=== PATIENT | male | born 1965 ===

== ENCOUNTER 2016-08-16 09:41 | Emergency (ER) | payer BC ==
[2016-08-16 10:01] VITALS: BP 115/69
--- NOTE | 2016-08-16 14:41 | UC ---
Citlaly Ewing [place], scribed for Brian Dougherty MD on 08/16/16 at 1035 . Dizzy HPI HPI Summary: Patient is a 51 y/o male who presents to the with constant dizziness since yesterday. He states he has been feeling exhaustion and grief, like when his mother since 7 days. He denies nausea, but describes the dizziness as one you experience before vomiting, He denies numbness, blurry vision, tinnitus, or tingling. Pt reports he had a cold 4-5 days ago. He reports no SI, but reports recent stress. - History Of Current Complaint Chief Complaint: UCGeneralIllness Stated Complaint: DIZZY Time Seen by Provider: 08/16/16 10:20 Hx Obtained From: Patient Onset/Duration: Gradual Onset, Lasting Days Timing: Constant Severity Initially: Moderate Severity Currently: Moderate Character: Weak - 1 week., Dizzy Aggravating Factor(s): Nothing Alleviating Factor(s): Nothing Associated Signs And Symptoms: Negative: Nausea, Tinnitus, Visual Changes - Allergies/Home Medications Allergies/Adverse Reactions: Allergies Allergy/AdvReac Type Severity Reaction Status Date / Time No Known Allergies Allergy Verified 08/16/16 10:01 Home Medications: Home Medications Omeprazole CAP* [Prilosec CAP* 20 MG] 20 mg PO DAILY 08/16/16 [History Confirmed 08/16/16] PMH/Surg Hx/FS Hx/Imm Hx Endocrine History Of: Denies: Diabetes, Thyroid Disease Cardiovascular History Of: Denies: Cardiac Disorders, Hypertension Respiratory History Of: Denies: COPD, Asthma GI/ History Of: Denies: Ulcer - Surgical History Surgical History: None - Family History Known Family History: Positive: Other - CVA. Negative: Cardiac Disease, Diabetes - Social History Alcohol Use: None Substance Use Type: None Smoking Status (MU): Never Smoked Tobacco Review of Systems Constitutional: Negative Gastrointestinal: Negative - No nausea. Neurological: Negative - No numbness, blurry vision, tinnitus, or tingling. All Other Systems Reviewed And Are Negative: Yes Physical Exam Triage Information Reviewed: Yes Appearance: Well-Appearing, No Pain Distress Vital Signs: Initial Vital Signs Temp 97.7 F 08/16/16 09:56 Pulse 61 08/16/16 09:56 Resp 16 08/16/16 09:56 BP 115/69 08/16/16 09:56 Pulse Ox 100 08/16/16 09:56 Vital Signs Reviewed: Yes ENT: Positive: TMs normal - Pearly white. No effusion. No significant nystagmus. EOMI., Other: - MMM. Neck: Positive: Supple, Nontender, No Lymphadenopathy Respiratory: Positive: Lungs clear. Negative: Wheezing - or Rales. Cardiovascular: Positive: RRR, No Murmur, Other: - No rubs or gallops. Abdomen Description: Positive: Nontender, No Organomegaly, Soft Musculoskeletal: Positive: No Edema Neurological: Positive: Alert, Other: - Ambulates in narrow base gate. Steady. No ataxia. Negative Rombergs test. Full squat, heal rise, toe raise. Reflex upper extremity: +1. 2+ bilateral plantar reflexes. Cranial nerves 3-12 intact. Taylec-cl-ddpu intact. Xhai-gh-ttio intact. Re-Evaluation - Re-Evaluation First Eval Re-Evaluation Time: 11:29 Comment: Informed pt of follow up with Dr. Robert (PCP). Dizzy Course/Dx - Course Course Of Treatment: Presents with 1 week of feeling foggy and emotionally overwhelmed. He describes many stressors in detail. Very supportive that is trying to get him into therapy. He denies any SI, he had no hx of suicide. No means to commit suicide and no substance abuses. I believe he is low risk for suicide. I think he needs help. We will call Dr. Robert to follow up. Secondly, he c/o vertigo sx. They sound mild. No other neurological deficits. No CVA risk factors. Physical exam is completely nml, including cerebellar exam. Will treat symptomatically with Meclizine and with referral to ENT. - Differential Dx/Diagnosis Differential Diagnosis/HQI/PQRI: Anxiety, Coronary Artery Disease, Dysrhythmia, Hyperventilation, Hypovolemia, Labyrinthitis, Meniere's Disease, Metabolic Abnormality, Seizure, Transient Ischemic Attack, Vasovagal Reaction Provider Diagnoses: Depression and Vertigo. - Physician Notifications Discussed Patient Care With: Dr. Robert (PCP) @ [phone]. Discussed pt's case. Set up follow up for 1pm. Pt is aware. Discharge - Discharge Plan Condition: Fair Disposition: HOME Prescriptions: Meclizine TAB* [Antivert 12.5 TAB*] 25 mg PO TID PRN #12 tab PRN Reason: Dizziness Patient Education Materials: Vertigo (ED), Dysthymic Disorder (ED) Referrals: Kevin Gama MD [Medical Doctor] - 1 Day Paulina Hughes MD [Primary Care Provider] - 1 Day The documentation as recorded by the Citlaly burton Salem accurately reflects the service I personally performed and the decisions made by , Brian Dougherty MD.
== END 2016-08-16 11:34 | disposition home or self-care (01) ==
LOC: UCEAST 09:41
DX: F32.9 Major depressive disorder, single episode, unspecified (principal); R42 Dizziness and giddiness
CPT/HCPCS: 99212; G0463